=== PATIENT | male | born 1955 | race Caucasian/White ===

== ENCOUNTER 2025-02-04 13:14 | Outpatient (CLI) | payer MEDICARE, SELFPAY ==
--- OUTSIDE RECORDS SUMMARY | 2024-11-26 06:45 | XMS_ITS ---
Author Organization [facility] Address [address] [place] [address] Care Team Providers Care Wax Room Supervisor Name Role Phone Desiree Triplett Primary Care Provider Rosangela Chowdhury [phone] Allergies No Known Allergies REASON FOR VISIT Right Lumbar Five Sacral One Epidural Steroid Injection Medications Medication SIG (Take, Route, Frequency, Duration) Notes Start Date End Date Status Anoro Ellipta 62.5-25 MCG/ACT 1 puff Inhalation Once a day Active Atorvastatin Calcium 20 MG 1 tablet Oral ly Once a day Active Zinc 50 MG 1 tablet Orally Once a day Active Tamsulosin HCl 0.4 MG 1 capsule Orally O nce a day Active Encounters Encounter Location Date Provider Diagnosis [facility] [address] 11/26/2024 Rosangela Samuel Plan Of Treatment No Information Progress Notes * Ernst KWANDOB:1955 (69 yo M)Acc No.[id number]:11/26/2024 Injection Patient: Ernst CARLOS Provider: Emeterio Samuel MD :1955 A ge:68 Y S ex:Male Date:11/26/2024 Address:[address] [place], [place] [address] Pcp:Desiree Triplett Subjective: * Chief Complaints: * 1 . Right Lumbar Five Sacral One Epidural Steroid Injection. * HPI: C omplaints: PROCEDURE: 1. Selective transforaminal nerve root injection at the Right L5-S1 Level to block the S1 Nerve root. 2. Epidurography 3. Fluoroscopic imaging for needle placement 4. Radiographic interpretation: Lumbar Spine DIAGNOSIS: 1. Lumbar Radiculopathy MEDICATION USED: 1. Epidural local anesthetic: 5 cc Lidocaine 1% as needed for skin infiltration 2. Contrast agent: 3 cc Omnipaque-300 3. Epidural local anesthetic: 3 cc Bupivicacine 0.25% 4. Steroid: 80 mg Depo-Medrol (methylprednisolone) SUBJECTIVE: This patient presents today for a right lumbar 5 - sacral 1 epidural steroid injection. PROCEDURE DESCRIPTION: Informed consent for the procedure was obtained and the patient signed the procedure consent form. The patient was given sufficient time to ask questions related to the procedure and to discuss expectations and the overall plan of treatment. The patient was brought into the procedure room and placed in the appropriate position for the procedure as noted above. Betadine (or alcohol if the patient carried an iodine allergy history) was used to prepare the skin over the appropriate location for the injection and sterile drapes were applied. Strict aseptic technique was followed during the procedure. The patient was brought into the procedure room and placed in the appropriate position for the procedure above. An initial RADIOLOGIC EXAMINATION, of the facet JOINTS; LESS THAN THREE VIEWS was performed with a c-arm fluoroscope. The initial survey found moderate degenerative changes noted through the FACET joint. A 22 Ga spinal needle was used for the procedure. This was advanced from a right lateral and slightly caudal position and angled upward under the transverse process to place the needle point in close proximity to the nerve root to be blocked just caudal to the pedicle in the AP projection, placing the needle point high up in the neuroforamen. AP, oblique and lateral fluoroscopic images were used for precise needle positioning within the neuroforamen. Once needle placement was confirmed with the injection of contrast agent, the patient received the steroid and local anesthetic as noted above after careful aspiration for CSF and blood. An epidurogram, if done, is reported below. The patient had no ill effects from the procedure. Vital signs were monitored and found to be stable throughout. Repeat examination verified additional paresthesias or numbness in the distribution of the nerve blocked. The patient was taken to and watched in the recovery area for an appropriate period of time and then released to home once discharge criteria were met and discharge planning/subsequent appointments were made. FLUOROSCOPIC IMAGING FINDINGS: An initial survey of the spine in the area noted was performed with the C-arm fluoroscope. The following were noted: 1. moderate degenerative changes were notated in the lumbar spine radiographic intepretation: Lumbar spine 2 views EPIDUROGRAM FINDINGS: Once the needle was properly placed within the epidural nerve root sleeve and after careful aspiration to check for CSF and blood, the contrast agent noted above was injected to observe the dye flow pattern in the area injected. Contrast was seen to flow freely in a retrograde and anterograde fashion along the nerve root sleeve into the central epidural space from L5-S1. There was no evidence of cut off of a nerve root sleeve or impairment of dye flow into any area. COMPLICATIONS: NONE RESULTS: ___% pain relief achieved PLAN: 1. Follow post procedure instructions and complete post procedure diary. 2. Continue on pres ent medications. 3. Follow up by telephone in a few days and return for follow up appointment within several weeks to check on response to the injection or to repeat the injection and to make any necessary medication adjustment and determine subsequent treatment steps. * Medical History: C OPD, T2DM, Hyperlipidemia, Lumbar spondylosis. * Medications: T aking Zinc 50 MG Tablet 1 tablet Orally Once a day , Taking Tamsulosin HCl 0.4 MG Capsule 1 capsule Orally Once a day , Taking Anoro Ellipta 62.5-25 MCG/ACT Aerosol Powder Breath Activated 1 puff Inhalation Once a day , Taking Atorvastatin Calcium 20 MG Tablet 1 tablet Orally Once a day * Allergies: N .K.D.A. Objective: * Vitals: Assessment: Plan: * Treatment: * * Electronic signature of Rosangela Samuel MD on 02/04/2025 at 02:57 PM CDT Sign off status: Pending * Provider: Emeterio Samuel MD Date: 11/26/2024 Generated for David kelley/Anabell/Soto on: 0 02/04/2025 02:57 PM CDT History and Physical Notes * HPI (History of Present Illness) Category Sub-Category Detail Notes Category Not es Complaints PROCEDURE: 1. Selective transforaminal nerve root injection at the Right L5-S1 Level to block the S1 Nerve root. 2. Epidurography 3. Fluoroscopic imaging for needle placement 4. Radiographic interpretation: Lumbar Spine DIAGNOSIS: 1. Lumbar Radiculopathy MEDICATION USED: 1. Epidural local anesthetic: 5 cc Lidocaine 1% as needed for skin infiltration 2. Contrast agent: 3 cc Omnipaque-300 3. Epidural local anesthetic: 3 cc Bupivicacine 0.25% 4. Steroid: 80 mg Depo-Medrol (methylprednisolone) SUBJECTIVE: This patient presents today for a right lumbar 5 - sacral 1 epidural steroid injection. PROCEDURE DESCRIPTION: Informed consent for the procedure was obtained and the patient signed the procedure consent form. The patient was given sufficient time to ask questions related to the procedure and to discuss expectations and the overall plan of treatment. The patient was brought into the procedure room and placed in the appropriate position for the procedure as noted above. Betadine (or alcohol if the patient carried an iodine allergy history) was used to prepare the skin over the appropriate location for the injection and sterile drapes were applied. Strict aseptic technique was followed during the procedure. The patient was brought into the procedure room and placed in the appropriate position for the procedure above. An initial RADIOLOGIC EXAMINATION, of the facet JOINTS; LESS THAN THREE VIEWS was performed with a c-arm fluoroscope. The initial survey found moderate degenerative changes noted through the FACET joint. A 22 Ga spinal needle was used for the procedure. This was advanced from a right lateral and slightly caudal position and angled upward under the transverse process to place the needle point in close proximity to the nerve root to be blocked just caudal to the pedicle in the AP projection, placing the needle point high up in the neuroforamen. AP, oblique and lateral fluoroscopic images were used for precise needle positioning within the neuroforamen. Once needle placement was confirmed with the injection of contrast agent, the patient received the steroid and local anesthetic as noted above after careful aspiration for CSF and blood. An epidurogram, if done, is reported below. The patient had no ill effects from the procedure. Vital signs were monitored and found to be stable throughout. Repeat examination verified additional paresthesias or numbness in the distribution of the nerve blocked. The patient was taken to and watched in the recovery area for an appropriate period of time and then released to home once discharge criteria were met and discharge planning/subsequent appointments were made. FLUOROSCOPIC IMAGING FINDINGS: An initial survey of the spine in the area noted was performed with the C-arm fluoroscope. The following were noted: 1. moderate degenerative changes were notated in the lumbar spine radiographic intepretation: Lumbar spine 2 views EPIDUROGRAM FINDINGS: Once the needle was properly placed within the epidural nerve root sleeve and after careful aspiration to check for CSF and blood, the contrast agent noted above was injected to observe the dye flow pattern in the area injected. Contrast was seen to flow freely in a retrograde and anterograde fashion along the nerve root sleeve into the central epidural space from L5-S1. There was no evidence of cut off of a nerve root sleeve or impairment of dye flow into any area. COMPLICATIONS: NONE RESULTS: ___% pain relief achieved PLAN: 1. Follow post procedure instructions and complete post procedure diary. 2. Continue on pres ent medications. 3. Follow up by telephone in a few days and return for follow up appointment within several weeks to check on response to the injection or to repeat the injection and to make any necessary medication adjustment and determine subsequent treatment steps.
--- OUTSIDE RECORDS SUMMARY | 2024-12-26 05:00 | XMS_ITS ---
Author Organization [facility] Address [address] [place] [address] Care Team Providers Care Drop Hammer Mechanic Name Role Phone Desiree Triplett Primary Care Provider Rosangela Chowdhury [phone] Allergies No Known Allergies REASON FOR VISIT Right Lumbar Five Sacral One Epidural Steroid Injection Medications Medication SIG (Take, Route, Frequency, Duration) Notes Start Date End Date Status Zinc 50 MG 1 tablet Orally Once a day Active Tamsulosin HCl 0.4 MG 1 capsule Orally O nce a day Active Anoro Ellipta 62.5-25 MCG/ACT 1 puff Inhalation Once a day Active Atorvastatin Calcium 20 MG 1 tablet Oral ly Once a day Active Encounters Encounter Location Date Provider Diagnosis [facility] [address] [place] [address] 12/26/2024 Rosangela Samuel Other intervertebral disc displacement, 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 and Lumbar radiculopathy M54.16 Assessments Encounter Date Diagnosis (ICD Code) Assessment Notes Treatment Notes Treatment Clinical Notes Section Notes 12/26/2024 Other intervertebral disc displacement, lumbar region (ICD-10 - M51.26) 12/26/2024 Lumbar radiculopathy (ICD-10 - M54.16) Plan Of Treatment No Information Procedure Notes * Category Sub-Category Detail Notes Radiology Interpretation Moderative to advanced spondylosis L5 S1 Disc space narrowing at L5 S1 End plate changes superior and inferior L5 Progress Notes * Ernst BARBOURDOB:1955 (69 yo M)Acc No.[id number]:12/26/2024 Injection Patient: Ernst CARLOS Provider: Emeterio Samuel MD :1955 A ge:68 Y S ex:Male Date:12/26/2024 Address:[address] [place] [id number] Pcp:Desiree Triplett Subjective: * Chief Complaints: * 1 . Right Lumbar Five Sacral One Epidural Steroid Injection. * HPI: C omplaints: PROCEDURE: 1. Selecti ve transforaminal nerve root injection at the Right L5-S1 Level to block the Right and Left S1 Nerve root. 2. Epidurography 3. Fluoroscopic imaging for needle placement 4. Radiographic interpretation: Lumbar Spine DIAGNOSIS: 1. Lumbar Spinal Stenosis 2. Lumbar Radiculopathy MEDICATION USED: 1. Epidural local anesthetic: 5 ml lidocaine 1% 2. Contrast agent: 3 ml Omnipaque-300, 3. Epidural local anesthetic: 3 ml bupivicacine 0.25%, 4. Steroid: 80mg Depo-Medrol (methylprednisolone) SUBJECTIVE: This patient presents today for a Right lumbar 5 - sacral 1 epidural steroid [...] spinal needle was used for the procedure. Attention was first placed to the right side and was advanced from a lateral and slightly caudal position and angled [...] had no ill effects from the procedure. Repeat examination verified additional paresthesias or numbness in the distribution of the nerve blocked. The patient was taken to and watched in the recovery area for an appropriate period of time and then released to home in the care of a responsible adult once discharge criteria were met and discharge planning/subsequent appointments were made. FLUOROSCOPIC IMAGING FINDINGS: An initial survey of the spine in the area noted was performed with the C-arm fluoroscope. The following were noted: 1. Advanced degenerative changes were notated in the lumbar spine EPIDUROGRAM FINDINGS: Once the needle was properly [...] dye flow into any area. COMPLICATIONS: NONE PLAN: 1. Follow post procedure instructions and complete post procedure diary. 2. Continue on present medications. 3. Follow up appointment within several weeks to check [...] Allergies: N .K.D.A. Objective: * Vitals: Assessment: * Assessment: 1. O ther intervertebral disc displacement, lumbar region - M51.26 (Primary) 2 . L umbar radiculopathy - M54.16 Plan: * Treatment: * Procedures: R adiology Interpretation: Disc space narrowing at L 5 S1. End plate changes superior and inferior L 5. Moderative to advanced spondylosis L 5 S1. * Procedure Codes: 6 4483 INJ FORAMEN EPIDURAL L/S, Modifiers: RT , [address]292 X-RAY EXAM OF LOWER SPINE, J1010 Injection, methylprednisolone acetate, 1 mg, Units: 80.00 , Modifiers: JZ * * Electronic signature of Rosangela Samuel MD on 02/04/2025 at 02:57 PM CDT Sign off status: Pending * Provider: Emeterio Samuel MD Date: 0 12/26/2024 Generated for Printi ng/Faxing/eTransmitting on: 0 02/04/2025 02:57 PM CDT History and Physical Notes * HPI (History of Present Illness) Category Sub-Category Detail Notes Category Not es Complaints PROCEDURE: 1. Selecti ve transforaminal nerve root injection at the Right L5-S1 Level to block the Right and Left S1 Nerve root. 2. Epidurography 3. Fluoroscopic imaging for needle placement 4. Radiographic interpretation: Lumbar Spine DIAGNOSIS: 1. Lumbar Spinal Stenosis 2. Lumbar Radiculopathy MEDICATION USED: 1. Epidural local anesthetic: 5 ml lidocaine 1% 2. Contrast agent: 3 ml Omnipaque-300, 3. Epidural local anesthetic: 3 ml bupivicacine 0.25%, 4. Steroid: 80mg Depo-Medrol (methylprednisolone) SUBJECTIVE: This patient presents today for a Right lumbar 5 - sacral 1 epidural steroid [...] spinal needle was used for the procedure. Attention was first placed to the right side and was advanced from a lateral and slightly caudal position and angled [...] had no ill effects from the procedure. Repeat examination verified additional paresthesias or numbness in the distribution of the nerve blocked. The patient was taken to and watched in the recovery area for an appropriate period of time and then released to home in the care of a responsible adult once discharge criteria were met and discharge planning/subsequent appointments were made. FLUOROSCOPIC IMAGING FINDINGS: An initial survey of the spine in the area noted was performed with the C-arm fluoroscope. The following were noted: 1. Advanced degenerative changes were notated in the lumbar spine EPIDUROGRAM FINDINGS: Once the needle was properly [...] dye flow into any area. COMPLICATIONS: NONE PLAN: 1. Follow post procedure instructions and complete post procedure diary. 2. Continue on present medications. 3. Follow up appointment within several weeks to check on response to the injection or to repeat the injection and to make any necessary medication adjustment and determine subsequent treatment steps.
--- NOTE | ~2025-02-04 | PE_ITS ---
EXAMINATION: PET_PETPSMAST_PT DATE: 02/04/2025 15:31 INDICATION: Malignant neoplasm of prostate. TECHNIQUE: 5.132 mCi of Ga-68 gozetotide was administered intravenously. Low dose computed tomography (CT) images were acquired from the base of the brain to the proximal thighs for attenuation correction and anatomic localization. Automated exposure control was employed. Dose-length product (DLP) was 768 mGy- cm. Positron emission tomography (PET) images were acquired in the same distribution. COMPARISON: Lumbar spine MRI 10/10/2024, thyroid ultrasound 10/10/2024 FINDINGS: Head/neck: There are no pathologically enlarged lymph nodes. There are nodules in the thyroid measuring up to 3.2 cm without increased activity . Chest: There is mild emphysema. No pleural effusion. The heart size is normal. There are coronary artery calcifications. No pericardial effusion. Abdomen/pelvis/proximal thighs: The liver, gallbladder, spleen, pancreas, adrenal glands, and kidneys are normal. The prostate is moderately enlarged. There is increased activity in the prostate on the left with maximum SUV of 7.4. There are radiopaque markers in the prostate. There are no dilated loops of bowel. There are no pathologically enlarged lymph nodes. There is no free intraperitoneal fluid. There is severe lower lumbar spondylosis. IMPRESSION: 1. Moderately enlarged prostate with increased activity on the left, consistent with primary malignancy. No evidence of metastatic disease. 2. Multinodular goiter. Reviewed, dictated and finalized at location E.
--- OUTSIDE RECORDS SUMMARY | 2025-02-04 14:57 | XMS_ITS | Clinical Summary ---
Author Organization [facility] [address] [facility] [address] Address [address] [place] [address] Care Team Providers Care Manager Of School Name Role Phone Desiree Triplett MD Primary Care Provider Allergies No known active allergies Medications nitroglycerin (NITROSTAT) 0.[address] 1 tablet (0.4 mg total) under the tongue every 5 (five) minutes as needed for chest pain Max 3 doses. 25 tablet 3 04/12/2023 Active omeprazole (PriLOSEC) 40 mg capsule Take 1 capsule (40 mg total) by mouth daily 04/19/2023 Active atorvastatin (LIPITOR) 20 mg tablet Take 1 tablet (20 mg total) by mouth daily 90 tablet 3 05/30/2023 Active aspirin 81 mg enteric coated tablet Take 1 tablet (81 mg total) by mouth daily Active Active Problems Problem Noted Date Diagnosed Date GERD (gastroesophageal reflux disease) Aortic atherosclerosis 05/30/2023 Other chest pain 04/11/2023 Shortness of breath 04/11/2023 Tobacco abuse 04/11/2023 Claudication 04/11/2023 Chronic fatigue 04/11/2023 Medical History Medical History Date Comments Chest pain Family History Medical History Relation Name Comments COPD Father Heart disease Father Hyperlipidemia Father Alzheimer's disease Mother Heart disease Mother Hyperlipidemia Mother Relation Name Status Comments Father Mother Social History Tobacco Use Types Packs/Day Years Used Date Smoking Tobacco: Every Day Cigarettes Smokeless Tobacco: Never Tobacco Cessation:Ready to Q uit: Not Asked; Counseling Given: Not Answered Personal Safety Answer Date Recorded Getting School Help Needed Not on file 05/16 Sex and Gender Information Value Date Recorded Sex Assigned at Not on file Legal Sex Male 1:03 PM CDT Gender Identity Not on file Sexual Orientation Not on file Obstetrics History Last Filed Vital Signs Vital Sign Reading Time Taken Comments Blood Pressure 112/68 07/31/2023 10:53 AM RESIDENT SURGEON Pulse 92 07/31/2023 10:53 AM RESIDENT SURGEON Temperature - - Respiratory Rate - - Oxygen Saturation 98% 07/31/2023 10:53 AM RESIDENT SURGEON Inhaled Oxygen Concentration - - Weight 74.4 kg (164 lb) 07/31/2023 10:53 AM RESIDENT SURGEON Height 172.7 cm (5' 8) 07/31/2023 10:53 AM RESIDENT SURGEON Body Mass Index 24.94 07/31/2023 10:53 AM RESIDENT SURGEON Plan of Treatment Health Maintenance Due Date Last Done Comments Colon Cancer Screening-Colonoscopy 1955 Depression Screening 1955 Fall Risk Assessment 1955 Hepatitis C Screening 1955 Prostate Cancer Screening-PSA 1955 Hepatitis B Screening 01/01/1976 Pneumococcal vaccine 65+ (2 of 2 - PCV) 07/31/2021 07/31/2020 Well Visit 65+ 2022 DTaP/Tdap/Td Vaccine (2 - Td or Tdap) 09/14/2023 09/13/2013 Covid-19 Vaccine (4 - 2024-2 6 season) 2025 03/11/2023, 04/09/2021, 03/12/2021 Influenza Vaccine (#1) 2025 , 04/01/2022, 03/12/2021, Additional history exists Zoster Vaccine Completed 03/08/2019, 07/27/2018 Abdominal Aortic Aneurysm (A AA) Screen Completed 08/16/2023, 05/16/2023 Procedures Procedure Name Priority Date/Time Associated Diagnosis Comments US ABDOMINAL AORTIC ANEURYSM SCREENING Schedule Routine, Read Routine (OP Routine) 05/16/2023 8:50 AM RESIDENT SURGEON Exertional chest pain Tobacco abuse Screening for AAA (aortic abdominal aneurysm) from Last 3 Months or Most Recently Relevant to Health Maintenance Results * US Abdominal Aortic Aneurysm Screening (05/16/2023 8:50 AM RESIDENT SURGEON) Anatomical Region Laterality Modality Abdomen Ultrasound 05/16/2023 3:44 PM RESIDENT SURGEON Narrative 05/16/2023 3:45 PM RESIDENT SURGEON EXAM DESCRIPTION: US ABDOMINAL AORTIC ANEURYSM SCREENING REASON FOR STUDY: AAA screening, smoking history (Age => 50y) TECHNIQUE: Grayscale images acquired of the aorta and stored on PACS. Selected color Doppler and spectral images recorded. COMPARISON: None FINDINGS: There are atherosclerotic changes of the aorta with ectasia/mild aneurysmal dilatation of the distal abdominal aorta measuring 2.8 cm in the transverse dimension by 2.8 cm in the AP dimension. AORTIC CALIBER MAXIMAL PROXIMAL: 2.8 x 2.5 cm. MID: 2.6 x 2.6 cm. DISTAL: 2.8 x 2.8 cm. ILIAC DIAMETER RIGHT: 1.0 x 1.0 cm. LEFT: 0.9 x 1.2 cm. OTHER: No other significant finding. IMPRESSION: Atherosclerotic changes of the abdominal aorta with ectasia/mild aneurysmal dilatation of the distal abdominal aorta measuring up to 2.8 cm. REFERENCE: Please see below follow up recommendations for abdominal aortic aneurysm surveillance per Society for Vascular Surgery Guidelines: < 2.5 cm No follow up necessary 2.52.9 cm Recommended ultrasound follow up every 10 years 3.0-3.9 cm Recommended ultrasound follow up every 3 years 4.0-4.9 cm Recommended ultrasound follow up every 12 months, vascular surgery consult 5.0-5.4 cm Recommended ultrasound follow up every 6 months, vascular surgery consult >= 5.5 cm Referral to vascular surgeon Based upon Society for Vascular Surgery Guidelines: J Vasc Surgery 2008 50: s2s49; updated May 2017 J Vasc Surgery 67:277 THIS IS AN ELECTRONICALLY VERIFIED FINAL REPORT 05/16/2023 3:45 PM - Electronically signed by Buffy Linton D.O. PS: PS Report ID: [id number] Reading Location: [id number] Procedure Note Buffy Linton DO - 05/16/2023 EXAM DESCRIPTION: US ABDOMINAL AORTIC ANEURYSM SCREENING REASON FOR STUDY: AAA screening, smoking history (Age => 50y) TECHNIQUE: Grayscale images acquired of the aorta and stored on PACS.Selected color Doppler and spectral images recorded. COMPARISON: None FINDINGS: There are atherosclerotic changes of the aorta with ectasia/mildaneurysmal dilatation of the distal abdominal aorta measuring 2.8 cm in thetransverse dimension by 2.8 cm in the AP dimension. AORTIC CALIBER MAXIMAL PROXIMAL: 2.8 x 2.5 cm. MID: 2.6 x 2.6 cm. DISTAL: 2.8 x 2.8 cm. ILIAC DIAMETER RIGHT: 1.0 x 1.0 cm. LEFT: 0.9 x 1.2 cm. OTHER: No other significant finding. IMPRESSION: Atherosclerotic changes of the abdominal aorta with ectasia/mildaneurysmal dilatation of the distal abdominal aorta measuring up to 2.8 cm. REFERENCE: Please see below follow up recommendations for abdominal aortic aneurysm surveillance per Society for Vascular Surgery Guidelines: < 2.5 cm No follow up necessary 2.52.9 cm Recommended ultrasound follow up every 10 years 3.0-3.9 cm Recommended ultrasound follow up every 3 years 4.0-4.9 cm Recommended ultrasound follow up every 12 months, vascularsurgery consult 5.0-5.4 cm Recommended ultrasound follow up every 6 months, vascularsurgery consult >= 5.5 cm Referral to vascular surgeon Based upon Society for Vascular Surgery Guidelines: J Vasc Surgery 2009Oct 50: s2s49; updated May 2017 J Vasc Surgery 67:277 THIS IS AN ELECTRONICALLY VERIFIED FINAL REPORT 05/16/2023 3:45 PM - Electronically signed by Buffy Linton D.O. PS: PS Report ID: [id number] Reading Location: [place] [address] Geronimo Soriano MD [facility] PROCEDURES Final Result from Last 3 Months or Most Recently Relevant to Health Maintenance Insurance [facility] Care Teams Manager Of School Relationship Specialty Start Date End Date Desiree Triplett MD [address] [place] [address] PCP - General Family Medicine 01/26/23
--- OUTSIDE RECORDS SUMMARY | 2025-02-04 14:57 | XMS_ITS | Patient Health Record ---
Author Organization [facility] Address [address] [address] [address] Care Team Providers Care Cushion Builder Name Role Phone Desiree vuong Primary Care Provider Iggy Wright Unavailable [phone] Reason For Referral No Information Problems Problem Type SNOMED Code ICD Code Onset Dates Problem Status W/U Status Risk Notes Problem Non-toxic multinodular goiter (00098581) Multinodular goiter (nontoxic) (E04.2) Active confirmed Plan Of Treatment No Information Medical (General) History Medical History History ICD Code Enlarged thyroid
--- OUTSIDE RECORDS SUMMARY | 2025-02-04 14:57 | XMS_ITS | Patient Health Record ---
Author Organization [facility] Address [address] [place] [address] Care Team Providers Care Validation Intern Name Role Phone Desiree Triplett Primary Care Provider Rosangela Chowdhury Unavailable [phone] Panda Ramirez Unavailable [phone] Allergies No Known Allergies Reason For Referral No Information Medications Medication SIG (Take, Route, Frequency, Duration) Notes Start Date End Date Status Tamsulosin HCl 0.4 MG 1 capsule Orally O nce a day Active Zinc 50 MG 1 tablet Orally Once a day Active Atorvastatin Calcium 20 MG 1 tablet Oral ly Once a day Active Anoro Ellipta 62.5-25 MCG/ACT 1 puff Inhalation Once a day Active Vital Signs Heart Rate 123/73 /min 10/29/2024 Height 89 in 10/29/2024 Encounters Encounter Location Date Provider Diagnosis [facility] [address] 10/29/2024 Panda Ramirez Other intervertebral disc displacement, 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 and Lumbar radiculopathy M54.16 [facility] [address] [place] [address] 12/26/2024 Rosangela Samuel Other intervertebral disc displacement, 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 Low back pain with radiation to the bilateral posterior legs, right greater than left. 2. Herniated nucleus pulposus at L5-S1. 10/29/2024 Lumbar radiculopathy (ICD-10 - M54.16) IMPRESSION: 1. Low back pain with radiation to the bilateral posterior legs, right greater than left. 2. Herniated nucleus pulposus at L5-S1. 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 01/09/2025 Lumbar radiculopathy (ICD-10 - M54.16) Assessment is unchanged from 10/29/24 except as denoted below. 10/29/2024 Other PLAN: We will schedule the patient for a right L5-S1 epidural steroid injection to target the patient's pain and radicular symptoms stemming from the herniated nucleus pulposus at this level. We discussed with the patient about doing bilaterally L5-S1 epidural steroid injections; however, the patient states that he currently is not experiencing any symptoms down his left leg and all of his symptoms are on the right side. We discussed procedure details, risks, benefits, alternatives and expected outcomes of the above procedures with the patient. The patient expressed understanding. All patient questions were answered to the patient's satisfaction. We advised the patient that he can continue to take ebqy-kra-[id number] r medications for pain such as Tylenol or Advil. We advised the patient to read and follow all medication label instructions. The patient expressed understanding. If the patient does not receive substantial benefit from the upcoming epidural steroid injection, we will consider ordering further workup to determine the cause of his neurological symptoms in his lower extremities, including a bilateral lower extremity EMG and nerve conduction study as well as a folate and B12 test. The patient does have recent bloodwork from his doctor, which does include a CBC with diff, a TSH, a hemoglobin A1c, and a CMP, which were reviewed at today's visit. See the scanned documents for further details. We will consider a neurosurgeon referral in the future if the patient does not get significant benefit with the upcoming injection. We will not add or change any other medications at this time as the patient is currently tolerating all medications with no significant side effects. We advised the patient to contact the clinic if they develop any new pain or worsening symptoms. IMPRESSION: 1. Low back pain with radiation to the bilateral posterior legs, right greater than left. 2. Herniated nucleus pulposus at L5-S1. 01/09/2025 Other Notes: Significant time was spent due to complex decision-making as a result of the patient's complicated pain issues. The plan is as follows: Patient will continue exercise therapy regimen. Discussed with the patient about the natural progression of disc herniations. Explained to pt that most HNPs do resolve on their own, but if they do not resolve on their own and symptoms are still significant, then physical therapy and possibly surgery may be necessary. Advised pt to avoid high impact activities (running, jumping, basketball, heavy lifting, etc.) for the time being until their pain and symptoms improve. Advised pt that low impact exercises (walking, cycling, swimming, etc.) are acceptable. Pt expresses understanding. Discussed with pt about a NSG referral for a discectomy consult, but the pt declines at this time as his pain is well controlled. We will refer the patient for physical therapy to help strengthen muscles, improve mobility and/or stability, and correct biomechanical dysfunction. pt elects to FU PRN at this time. pt notes over the next few months he will be very busy with his prostate cancer treatments. We will not add or change any medications at this time as the patient is currently tolerating all medications with no significant side effects. Advised pt to contact clinic if they develop any new/worsening symptoms or pain The total encounter time for today's visit was 30 minutes which was spent on preparation for the visit, e.g. chart review, and in the activities documented in this note. Please refer back to the HPI and physical exam sections of this note for further details regarding this encounter. Assessment is unchanged from 10/29/24 except as denoted below. Plan Of Treatment No Information Insurance Providers Payer Name Payer Address Payer Phone Subscriber Number Group Number Insured Name Patient Relationship to Insured Coverage Start Date Coverage End Date [employer] [address] [place] [phone] [id number] Ernst Barbour Self - patient is the insured Medical (General) History Medical History History ICD Code COPD T2DM Hyperlipidemia Lumbar spondylosis
--- OUTSIDE RECORDS SUMMARY | 2025-02-04 14:57 | XMS_ITS | Patient Health Record ---
Author Organization [facility] dicine Address [address] [place] [address] Care Team Providers Care Hvac Controls Technician Name Role Phone FRANSISCO Triplett Primary Care Provider [phone] Kirstin Medrano Unavailable [phone] Migration, Provider Unavailable Unavailable Allergies No Known Allergies Results Component Value Reference Range Flag Notes CBC w/ Diff Reviewed date:03/09/2024 12:00:00 AM Interpretation: Performing Lab: Notes/Report: Baso Absolute 0.1 x10*3/mcL Basophil Auto 0.6 % Eos Absolute 0.3 x10*3/mcL Eosinophil Auto 2.9 % Hct 45.0 % Hgb 15.4 g/dL Lymph Absolute 2.8 x10*3/mcL Lymph Auto 23.7 % MCH 31.5 pg MCHC 34.2 g/dL MCV 92.1 fL [place] Absolute 1.3 x10*3/mcL [place] Auto 11.1 % MPV 8.9 fL Neutro Absolute 7.3 x10*3/mcL Neutro Auto 61.7 % Platelets 336 K/mcL RBC 4.88 x10*6/mcL RDW 12.5 % WBC 11.9 K/mcL Comprehensive Metabolic Pane l Reviewed date:03/09/2024 12:00:00 AM Interpretation: Performing Lab: Notes/Report: Albumin Lvl 4.4 g/dL Albumin/Globulin Ratio 1.4 Alk Phos 127 unit/L ALT 21 unit/L ANION GAP 8.0 mmol/L AST 18 unit/L Bilirubin Total 0.5 mg/dL BUN 10 mg/dL Calcium Lvl 9.3 mg/dL Chloride Lvl 99 mmol/L CO2 28 mmol/L Creatinine Lvl 0.76 mg/dL eGFR CKD-EPI >90 mL/min/1.73 m2 Glucose Lvl 98 mg/dL Potassium Lvl 4.3 mmol/L Protein Total 7.5 g/dL Sodium Lvl 135 mmol/L Hemoglobin A1c {Glycosylated } Reviewed date:03/09/2024 12:00:00 AM Interpretation: Performing Lab: Notes/Report: eAvg Glucose 137 mg/dL Hemoglobin A1c 6.4 % Lipid Panel {Chol, Trig, HDL , LDL} Reviewed date:03/09/2024 12:00:00 AM Interpretation: Performing Lab: Notes/Report: Chol/HDL 3 Cholesterol Total 120 mg/dL Coronary Risk 37 % HDL 45 mg/dL LDL 56 mg/dL NON HDL CHOLESTEROL 75 mg/dL Triglycerides 97 mg/dL Microalbumin Quantitative wi th Creatinine Reviewed date:03/09/2024 12:00:00 AM Interpretation: Performing Lab: Notes/Report: Creatinine Ur 30 mg/dL Microalbumin Ur <7.0 mg/L T4 Free Reviewed date:03/09/2024 12:00:00 AM Interpretation: Performing Lab: Notes/Report: T4 Free 0.95 ng/dL Thyroid Stimulating Hormone Reviewed date:03/09/2024 12:00:00 AM Interpretation: Performing Lab: Notes/Report: TSH 0.89 mcIU/mL Comprehensive Metabolic Pane l Reviewed date:03/30/2024 12:00:00 AM Interpretation: Performing Lab: Notes/Report: Albumin Lvl 4.5 g/dL Albumin/Globulin Ratio 1.4 Alk Phos 111 unit/L ALT 22 unit/L ANION GAP 5.9 mmol/L AST 19 unit/L Bilirubin Total 0.5 mg/dL BUN 8 mg/dL Calcium Lvl 9.2 mg/dL Chloride Lvl 104 mmol/L CO2 30 mmol/L Creatinine Lvl 0.78 mg/dL eGFR CKD-EPI >90 mL/min/1.73 m2 Glucose Lvl 89 mg/dL Potassium Lvl 4.3 mmol/L Protein Total 7.6 g/dL Sodium Lvl 140 mmol/L CBC w/ Diff Reviewed date:04/03/2024 12:00:00 AM Interpretation: Performing Lab: Notes/Report: Baso Absolute 0.1 x10*3/mcL Basophil Auto 1.0 % Eos Absolute 0.2 x10*3/mcL Eosinophil Auto 2.4 % Hct 40.8 % Hgb 14.1 g/dL Lymph Absolute 3.4 x10*3/mcL Lymph Auto 32.2 % MCH 31.9 pg MCHC 34.5 g/dL MCV 92.4 fL [place] Absolute 1.1 x10*3/mcL [place] Auto 10.9 % MPV 8.6 fL Neutro Absolute 5.6 x10*3/mcL Neutro Auto 53.5 % Platelets 294 K/mcL RBC 4.41 x10*6/mcL RDW 12.6 % WBC 10.4 K/mcL Ultrasound : Neck Reviewed date:10/10/2024 10:38:02 AM Interpretation: Performing Lab: Notes/Report: MRI : Lumbar without contras t Reviewed date:10/10/2024 11:40:45 AM Interpretation: Performing Lab: Notes/Report: MRI : Lumbar without contras t Reviewed date:09/23/2024 03:07:12 PM Interpretation: Performing Lab: Notes/Report: Hemoglobin A1c {Glycosylated } Reviewed date:09/18/2024 07:11:30 PM Interpretation: Performing Lab: Notes/Report: Test Performed by: [place] [address] Online Community Manager: Ernst Elias DO Hemoglobin A1c 6.1 <=6.4 % Hemoglobin A1C < 5.7% = Normal 5.7-6.4% = Increased risk for future diabetes >=6.5% = Diabetes eAvg Glucose 128 <=117 mg/dL H eAG Reference Range <117 mg/dL = Normal 117-137 mg/dL = Increased Risk For Future Diabetes >137 mg/dL = Diabetes T4 Free Reviewed date:09/18/2024 07:11:30 PM Interpretation: Performing Lab: Notes/Report: Test Performed by: [place] [address] Online Community Manager: Ernst Elias DO T4 Free 0.80 0.60-1.70 ng/dL CBC w Auto Diff Reviewed date:09/18/2024 07:11:30 PM Interpretation: Performing Lab: Notes/Report: Test Performed by: [place] [id number] Online Community Manager: Ernst Elias DO WBC 9.9 4.0-11.7 K/mcL RBC 4.68 4.28-5.56 x10*6/mcL Hgb 14.8 13.0-17.0 g/dL Hct 43.4 38.1-48.9 % MCV 92.7 83.4-98.1 fL MCH 31.7 27.0-34.2 pg MCHC 34.2 31.8-35.3 g/dL RDW 11.9 12.0-16.4 % L Platelets 291 149-393 K/mcL MPV 9.0 7.0-11.0 fL Neutro Auto 55.4 45.3-79.0 % Lymph Auto 28.4 11.8-45.9 % [place] Auto 11.3 4.4-12.0 % Eosinophil Auto 4.2 0.0-6.3 % Basophil Auto 0.7 0.2-1.6 % Neutro Absolute 5.5 2.4-8.4 x10*3/mcL Lymph Absolute 2.8 0.8-3.7 x10*3/mcL [place] Absolute 1.1 0.3-1.1 x10*3/mcL Eos Absolute 0.4 0.0-0.5 x10*3/mcL Baso Absolute 0.1 0.0-0.1 x10*3/mcL Comprehensive Metabolic Pane l Reviewed date:09/18/2024 07:11:30 PM Interpretation: Performing Lab: Notes/Report: Test Performed by: [place] [address] Online Community Manager: Ernst Elias DO Glucose Lvl 92 74-109 mg/dL ADA risk stratification for diabetes <100 mg/dL = Normal 100-125 mg/dL = Increased risk for future diabetes >=126 mg/dL = Diabetes, if on more than one testing occasion BUN 10 7-25 mg/dL Creatinine Lvl 0.79 0.70-1.30 mg/dL eGFR CKD-EPI >90 >=90 mL/min/1.73 m2 The CKD-EPI equation is validated in individuals 18 years of age and older. It is less accurate in patients with extremes of muscle mass, restriction of dietary protein, ingestion of creatine, extra-renal metabolism of creatinine, or treatment with medications that affect renal tubular creatinine secretion. GFR Categories in Chronic Kidney Disease (CKD) GFR GFR (mL/min/1.73 Category: square meters): Interpretation: G1 90 or greater Normal or high* G2 60-89 Mild decrease* G3a 45-59 Mild to moderate decrease G3b 30-44 Moderate to severe decrease G4 15-29 Severe decrease G5 14 or less Kidney failure *In the absence of evidence of kidney damage, neither GFR category G1 nor G2 fulfill the criteria for CKD (Kidney Int Suppl 2013;3:1-150) Calcium Lvl 9.1 8.6-10.3 mg/dL Sodium Lvl 137 136-145 mmol/L Potassium Lvl 4.2 3.5-5.1 mmol/L Chloride Lvl 103 98-107 mmol/L CO2 27 21-31 mmol/L Anion Gap 7.3 <=16.0 mmol/L Alk Phos 114 34-104 unit/L H Bilirubin Total 0.5 0.3-1.0 mg/dL Albumin Lvl 4.4 3.5-5.2 g/dL Protein Total 7.1 6.4-8.9 g/dL Albumin/Globulin Ratio 1.6 1.1-2.5 ALT 18 7-52 unit/L AST 20 13-39 unit/L Lipid Panel {Chol, Trig, HDL , LDL} Reviewed date:09/18/2024 07:11:30 PM Interpretation: Performing Lab: Notes/Report: Test Performed by: [place] [address] Online Community Manager: Ernst Elias DO Cholesterol Total 121 <=199 mg/dL Triglycerides 76 0-149 mg/dL Triglyceride Reference Ranges: <150 mg/dL Normal 150 - 199 mg/dL Borderline High 200 - 499 mg/dL High >=500 mg/dL Very High LDL 58 <=100 mg/dL LDL Optimal: <100 Near or above optimal: 100-129 Borderline high: 130-159 High: 160-189 Very high: >=190 Coronary heart disease risk factors should be considered when determining LDL goals. Please refer to ATPIII guidelines for further information. If LDL is not calculated, please call the lab to add on the direct LDL methodology, if desired. HDL 48 23-92 mg/dL Non HDL Cholesterol 73 <=130 mg/dL Chol/HDL 3 0-5 Coronary Risk 40 Coronary Risk Factor - Male Dangerous Risk: <7 % High Risk: 7-15 % Average Risk: 15-25 % Below Average Risk: 25-37 % Coronary Risk Factor - Female Dangerous Risk: <12 % High Risk: 12-18 % Average Risk: 18-27 % Below Average Risk: 27-40 % Thyroid Stimulating Hormone Reviewed date:09/18/2024 07:11:30 PM Interpretation: Performing Lab: Notes/Report: Test Performed by: [place] [id number] Online Community Manager: Ernst Elias DO TSH 0.78 0.45-5.33 mcIU/mL PSA Annual Screening Reviewed date:09/18/2024 07:11:30 PM Interpretation: Performing Lab: Notes/Report: Test Performed by: [place] [id number] Online Community Manager: Ernst Elias DO PSA Total 4.48 0.00-4.00 ng/mL H CT Scan : Chest with contras t Reviewed date:09/26/2024 09:18:35 AM Interpretation: Performing Lab: Notes/Report: Prostate Biopsies Reviewed date:11/20/2024 02:04:01 PM Interpretation: Performing Lab: Notes/Report: PSA Annual Screening Reviewed date:10/02/2024 10:44:42 AM Interpretation: Performing Lab: Notes/Report: Reason For Referral Reason Elevated PSA Diagnosis 1 Elevated PSA (R97.20 ) Referral Organization [facility] Referring Provider First Name FRANSISCO Referring Provider Last Name Putney Referring Provider [facility] huy Referred Provider Specialty Urology General Notes Zoraida Casiano 09/23 11:38:33 AM CDT [facility] 09/30/2024 02:51:01 PM CDT >Referral faxed to [facility] [phone] Cristofer Kaitlin 10/07/2024 09:17:56 AM CDT >consult note from 10/04/24 in chart. Referral Priority Routine Referral Appointment Date 10/04/2024 Reason L5-S1 disc extrusion . Diagnosis 1 Low back pain, unspe cified (M54.50) Diagnosis 2 Lumbar spondylosis ( M47.816) Referral Organization [facility] Referring Provider First Name FRANSISCO Referring Provider Last Name Putney Referring Provider [facility] icine Referred Provider Specialty Pain Medicin e General Notes CatieJacielColton 2024 11:51:03 AM CDT >Patient stated perferably in [place], Roshni Slaughter 10/14/2024 11:07:47 AM CDT >Referral sent to [facility] in [place] with Dr.Anne Samuel. P: [phone] F: [phone], Eugene Lisa 12/09/2024 03:53:17 PM CDT >referral sent to check on status of referral, Lisa Cleveland 12/10/2024 03:02:16 PM CDT >received consult note in chart today Referral Priority Routine Referral Appointment Date 10/29/2024 Medications Medication SIG (Take, Route, Frequency, Duration) Notes Start Date End Date Status Krill Oil 500 mg Capsule Oral; Duration: 0 03/12/2021 Active Multi-Vitamin - Tablet 1 Oral every day; Duration: 0 03/12/2021 Active Cinnamon oral; Duration: 0 *Pick strength-form from [employer] for eRX* 03/12/2021 Active Vitamin C oral; Duration: 0 *Pick strength-form from [employer] for eRX* 03/12/2021 Active Zinc 50 MG Tablet 1 Oral every day; Duration: 0 03/12/2021 Active Anoro Ellipta 62.5-25 MCG/ACT Aerosol Powder Breath Activated 1 puff Inhalation daily; Duration: 30 days Active Atorvastatin Calcium 20 MG Tablet TAKE 1 TABLET EVERY MORNING; Duration: 90 Active Tamsulosin HCl 0.4 MG Capsule TAKE 1 CAPSULE DAILY; Duration: 90 Active Immunizations Vaccine Route Administration Date Status Comme nts Zoster Unknown 07/27/2018 Administered ,sourcename : Historical information -from other registry Source VFC Code: : Zoster IM Intramuscular 03/08/2019 Administered Source VFC Code: : Tdap IM Intramuscular 09/13/2013 Administered Source VFC Code: : RSV-MAb (Respiratory syncytial virus immune globulin) IM Intramuscular 08/02/2023 Administered ,sourcename : New immunization record ,immstatus : Complete Pneumococcal polysaccharide PPV23 Unknown 07/31/2020 Administered ,sourcename : Historical information -from other registry Source VFC Code: : Advanced Electron Beams Covid-19 Vaccine 1st dose IM Intramuscular 03/11/2023 Administered Source VFC Code: : Moderna Covid-19 Vaccine 1st dose IM Intramuscular 03/12/2021 Administered Source VFC Code: : Moderna Covid-19 Vaccine 1st dose IM Intramuscular 04/09/2021 Administered Source VFC Code: : Influenza, quadrivalent (IIV4), split virus, 6-35 months dosage IM Intramuscular 03/12/2021 Administered ,sourcename : N ew immunization record ,immstatus : Complete Influenza, quadrivalent (IIV4), split virus, 6-35 months dosage IM Intramuscular 04/01/2022 Administered ,sourcename : N ew immunization record ,immstatus : Complete Influenza, high-dose seasonal, quadrivalent, preservative free >65 yrs IM Intramuscular 03/04/2023 Administered ,sourcename : N ew immunization record ,immstatus : Complete Influenza, high dose seasonal IM Intramuscular 03/05/2024 Administered ,sourcename : N ew immunization record ,immstatus : Complete Social History Social History Additional Details Category Social Info Options Details Migrated Social History Migrated Social History Alcohol history:Currently drinks alcohol ,notes : occassionally , Marital status:Single , Tobacco history:Current every day smoker ,notes : 1.5 PPD since age 17 Problems Problem Type SNOMED Code ICD Code Onset Dates Problem Status W/U Status Risk Notes Problem Lumbar spondylosis (908724498) Lumbar spondylosis (M47.816) Active confirmed Problem Right side sciatica (517288831422761) Sciatica, right side (M54.31) 04/29/20 24 Active confirmed Problem Screening for cardiovascular system disease (098215077) Encounter for screening for cardiovascular disorders (Z13.6) 08/02/19 24 Active confirmed Problem Low back pain (280157606) Low back pain, unspecified (M54.50) 04/29/20 24 Active confirmed Problem Tobacco use (352863247) Tobacco use (Z72.0) 01/19/20 23 Active confirmed Problem Nocturia (058352188) Nocturia (R35.1) 04/01/20 22 Active confirmed Problem Hard prostate (885310586) Nodular prostate without lower urinary tract symptoms (N40.2) 03/12/20 21 Active confirmed Problem Hyperlipidemia (89888957) Hyperlipidemia, unspecified (E78.5) 08/02/19 24 Active confirmed Problem Type II diabetes mellitus without complication (659360259) Type 2 diabetes mellitus without complications (E11.9) 08/25/19 24 Active confirmed July 2023 = 6.5% Problem Non-toxic single thyroid nodule (721545492) Nontoxic single thyroid nodule (E04.1) 08/25/19 24 Active confirmed Problem 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, 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) 09/22/19 24 Active confirmed Problem Screening for malignant neoplasm of prostate (168909188) Encounter for screening for malignant neoplasm of prostate (Z12.5) 08/02/19 Active confirmed Problem Hypo-osmolality and or hyponatremia (894227244) Hypo-osmolality and hyponatremia (E87.1) 03/15/20 Active confirmed Problem Leukocytosis (683911236) Elevated white blood cell count, unspecified (D72.829) 04/02/20 Active confirmed Problem Gastro-esophageal reflux disease without esophagitis (916974982) Gastro-esophageal reflux disease without esophagitis (K21.9) 08/25/19 24 Active confirmed Problem Tobacco user (992576394) Nicotine dependence, cigarettes, uncomplicated (F17.210) 08/02/19 Active confirmed Problem Chronic obstructive pulmonary disease (68860011) Chronic obstructive pulmonary disease, unspecified (J44.9) 11/16/19 Active confirmed Vital Signs Heart Rate 72 /min 09/26/2024 Temperature 97.6 degrees Fahrenheit 09/26/2024 Respiratory Rate 18 /min 09/26/2024 Height-cm 170.18 cm 09/26/2024 Oximetry 92 % 09/26/2024 Blood pressure diastolic 84 mm Hg 09/26/2024 Weight-kg 74.57 kg 09/26/2024 Height 67.00 in 09/26/2024 Blood pressure systolic 138 mm Hg 09/26/2024 Weight 164.4 lbs 09/26/2024 BMI 25.75 kg/m2 09/26/2024 Encounters Encounter Location Date Provider Diagnosis [address] [address] 03/05/2024 [facility] Encounter for immunization Z23 and Tobacco use Z72.[address] [address] 03/07/2024 Kirstin Medrano Tobacco use Z72.0 ; Cyst of oral region, unspecified K09.9 ; Hyperlipidemia, unspecified E78.5 and Type 2 diabetes mellitus without complications E11.[address] [address] [facility] L[facility] ; Nocturia R35.1 ; Nontoxic single thyroid nodule E04.1 ; Chronic obstructive pulmonary disease, unspecified J44.9 ; Hypo-osmolality and hyponatremia E87.1 ; Type 2 diabetes mellitus without complications E11.9 ; Tobacco use Z72.0 ; Cyst of oral region, unspecified K09.9 and Hyperlipidemia, unspecified E78.[address] [address] 04/02/2024 Provider Migration Elevated white blood cell count, unspecified D72.[address] [address] 04/29/2024 Kirstin Medrano Low back pain, unspecified M54.50 ; Sciatica, right side M54.31 and Tobacco use Z72.[address] [address] 09/26/2024 [facility] Elevated PSA R97.20 ; Type 2 diabetes mellitus without complications E11.9 ; Hyperlipidemia, unspecified E78.5 ; Nontoxic single thyroid nodule E04.1 ; Lumbar spondylosis M47.816 ; Sciatica of right side M54.31 ; Chronic obstructive pulmonary disease, unspecified J44.9 ; Gastro-esophageal reflux disease without esophagitis K21.9 ; Insect bite (nonvenomous) of unspecified back wall of thorax, initial encounter S20.469A and Bitten or stung by nonvenomous insect and other nonvenomous arthropods, initial encounter W57.XXXA [address] [address] 04/27/2024 Provider Migration [address] [address] 04/28/2024 Provider Migration [address] [address] 05/13/2024 [facility] Sciatica, right side M54.[address] [address] 05/24/2024 Kirstin Medrano [address] [address] 09/18/2024 [facility] Nontoxic single thyroid nodule E04.1 ; Type 2 diabetes mellitus without complications E11.9 ; Hyperlipidemia, unspecified E78.5 and Encounter for screening for malignant neoplasm of prostate Z12.[address] [address] 09/18/2024 [facility] Elevated PSA R97.[address] [address] 09/20/[address] [address] 10/11/2024 [facility] Low back pain, unspecified M54.50 and Lumbar spondylosis M47.816 Assessments Encounter Date Diagnosis (ICD Code) Assessment Notes Treatment Notes Treatment Clinical Notes Section Notes 05/13/2024 Sciatica, right side (ICD-10 - M54.31) 09/18/2024 Nontoxic single thyroid nodule (ICD-10 - E04.1) 09/18/2024 Elevated PSA (ICD-10 - R97.20) 10/11/2024 Low back pain, unspecified (ICD-10 - M54.50) 10/11/2024 Lumbar spondylosis (ICD-10 - M47.816) 09/26/2024 Elevated PSA (ICD-10 - R97.20) 41 mins spent face to face for routine visit. Additionally 8 mins spent performing foreign body removal on back. Elevated PSA - PSA levels are elevated, with a history of a prostate nodule. - Referral to urology for further evaluation - in process - potentially including an MRI of the prostate and guided biopsy if necessary. 09/18/2024 Type 2 diabetes mellitus without complications (ICD-10 - E11.9) 09/26/2024 Type 2 diabetes mellitus without complications (ICD-10 - E11.9) July 2023 = 6.5% Diabetes - Previously crossed over to diabetes in July 2023, currently controlled with diet. - Continue dietary management, no medication required at this time. 03/05/2024 Encounter for immunization (ICD-10 - Z23) 03/05/2024 Tobacco use (ICD-10 - Z72.0) 03/07/2024 Type 2 diabetes mellitus without complications (ICD-10 - E11.9) 03/07/2024 Hyperlipidemia, unspecified (ICD-10 - E78.5) 03/07/2024 Cyst of oral region, unspecified (ICD-10 - K09.9) 03/07/2024 Tobacco use (ICD-10 - Z72.0) 03/15/2024 Nontoxic single thyroid nodule (ICD-10 - E04.1) 03/15/2024 Type 2 diabetes mellitus without complications (ICD-10 - E11.9) July 2023 Dx: HBA1C 6.5%. 03/15/2024 Hyperlipidemia, unspecified (ICD-10 - E78.5) 03/15/2024 Hypo-osmolality and hyponatremia (ICD-10 - E87.1) 03/15/2024 Chronic obstructive pulmonary disease, unspecified (ICD-10 - J44.9) 03/15/2024 Cyst of oral region, unspecified (ICD-10 - K09.9) 03/15/2024 Cellulitis of face (ICD-10 - L03.211) 03/15/2024 Nocturia (ICD-10 - R35.1) 03/15/2024 Tobacco use (ICD-10 - Z72.0) 04/02/2024 Elevated white blood cell count, unspecified (ICD-10 - D72.829) 04/29/2024 Sciatica, right side (ICD-10 - M54.31) 04/29/2024 Tobacco use (ICD-10 - Z72.0) 04/29/2024 Low back pain, unspecified (ICD-10 - M54.50) 09/26/2024 Hyperlipidemia, unspecified (ICD-10 - E78.5) continue statin. 09/18/2024 Hyperlipidemia, unspecified (ICD-10 - E78.5) 09/26/2024 Nontoxic single thyroid nodule (ICD-10 - E04.1) Thyroid Nodule - Possible growth of thyroid nodule compared to previous images. - Order a dedicated ultrasound at [facility] to recheck the thyroid nodule, as recommended by the radiologist. 09/26/2024 Lumbar spondylosis (ICD-10 - M47.816) 09/18/2024 Encounter for screening for malignant neoplasm of prostate (ICD-10 - Z12.5) 09/26/2024 Sciatica of right side (ICD-10 - M54.31) Completed PT at [facility] in Jun, has continued home exercises regularly for the last 10 weeks. Still having sciatica problems. Sciatica - Sciatica likely due to nerve impingement from decreased disc height at L5 and S1, with moderate arthritis. - Attempt to get MRI covered to assess the severity. Consider referral to pain management if MRI is obtained. 09/26/2024 Chronic obstructive pulmonary disease, unspecified (ICD-10 - J44.9) COPD - COPD confirmed, with no prior use of inhalers. - Prescribe Anoro inhaler, one inhalation daily, to improve breathing and stamina. Monitor for improvement in symptoms. 09/26/2024 Gastro-esophageal reflux disease without esophagitis (ICD-10 - K21.9) Heartburn - Heartburn issues with previous use of omeprazole. - Offer pantoprazole as an alternative if needed. Continue famotidine as needed. Consider stronger medication if symptoms persist. 09/26/2024 Insect bite (nonvenomous) of unspecified back wall of thorax, initial encounter (ICD-10 - S20.469A) Verbal permission to remove tick that he didn't know he had. Tick didn't pull all the way out due to depth of embedded head. jaws still in wound, 1% lidcaine 2 mL used to numb upper med back after alcohol prep and 19 gauge needle used to remove remaining parts. bacitracin applied and band-aid used. Pt tolerated well. 09/26/2024 Bitten or stung by nonvenomous insect and other nonvenomous arthropods, initial encounter (ICD-10 - W57.XXXA) 09/26/2024 Other Tick Removal - Tick embedded in the back. - Removed tick and ensured all parts were extracted. Plan Of Treatment Next Appt Details Provider Name:FRANSISCO Triplett , 03/31/2025 11:00:00 AM, [address] [place], [address], [phone] Insurance Providers Payer Name Payer Address Payer Phone Subscriber Number Group Number Insured Name Patient Relationship to Insured Coverage Start Date Coverage End Date [employer]age Ppo [address] [place] [address] [id number] Ernst Barbour Self - patient is the insured 3 Medical (General) History Medical History History ICD Code Need for prophylactic vaccination and in oculation, Influenza V04.81 Routine general medical examination at [facility] V70.0 Nontoxic goiter, unspecified E04.9 Cyst of oral region, unspecified K09.9 Cellulitis of face L03.211 Chest pain, unspecified R07.9 Shortness of breath R06.02 Encounter for screening for malignant ne oplasm of colon Z12.11 Encounter for screening for malignant ne oplasm of respiratory organs Z12.2 Encounter for immunization Z23 Surgical History Surgery Date(Month/Year) Colonoscopy - normal 08/21/2018 Dr Rihc Rodriguez - prostate biopsy 025
== END 2025-02-04 13:15 | disposition home or self-care (01) ==
PROVIDERS: PCP Family Medicine; Visit Provider Nurse Practitioner
DX: C61 Malignant neoplasm of prostate (principal); E04.2 Nontoxic multinodular goiter
CPT/HCPCS: 78815; A9596

== ENCOUNTER 2025-05-13 09:30 | Outpatient (CLI) | payer MEDICARE, SELFPAY ==
--- NOTE | ~2025-05-13 | XR_ITS ---
EXAMINATION: XR pelvis min 3V, 05/13/2025 9:40 [employer] HISTORY: Sacroiliitis, not elsewhere classified COMPARISON: No comparisons available. Findings: No acute fracture or malalignment. Mild sclerosis of the sacroiliac joints, no erosions or osteophyte formation noted Soft tissues unremarkable. Impression: No acute fracture or malalignment. Reviewed, dictated and finalized at location P. [employer] Impression: No acute fracture or malalignment.
== END 2025-05-13 09:31 | disposition home or self-care (01) ==
LOC: MICIMG 09:31
PROVIDERS: PCP Physical Medicine & Rehabilitation Pain Medicine; Visit Provider Physical Medicine & Rehabilitation Pain Medicine
DX: M46.1 Sacroiliitis, not elsewhere classified (principal)
CPT/HCPCS: 72190